=== PATIENT | male | born 1950 | race Caucasian/White ===

== ENCOUNTER 2023-08-13 10:02 | Observation (INO) | payer OTHER, MEDICAID ==
[~2023-08-13] VITALS: Ht 170.2 cm; Wt 71.2 kg
[2023-08-13 10:03] VITALS: BP_SYST 154; PULSE 107; RESP 18; TEMP 97.6; O2SAT 97
[2023-08-13 10:35] LABS: BASOPHILS % (AUTO) 0.5 % (0.0-2.0); EOSINOPHILS # (AUTO) 0.3 K/uL (0.0-0.4); EOSINOPHILS % (AUTO) 3.1 % (0.0-4.0); HEMATOCRIT 39.6 % (36-54); HEMOGLOBIN 13.4 g/dL (14.0-18.0); LYMPHOCYTES # (AUTO) 1.2 K/uL (1.0-5.5); MEAN CORPUSCULAR HEMOGLOBIN 32 pg (27-31); MEAN CORPUSCULAR HGB CONC 34 % (32-36); MEAN CORPUSCULAR VOLUME 94 fL (79.0-98.0); MONOCYTES # (AUTO) 0.8 K/uL (0.0-1.0); MONOCYTES % (AUTO) 9.1 % (1.7-9.3); NEUTROPHILS % (AUTO) 72.3 % (40.0-70.0); PLATELET COUNT (AUTO) 323 K/uL (130-430); RED BLOOD CELL COUNT(AUTO) 4.22 MIL/uL (4.2-6.2); WHITE BLOOD COUNT (AUTO) 8.3 K/uL (4.8-10.8)
[2023-08-13 10:45] LABS: ANION GAP 7 (5-15); CALCIUM 9.8 mg/dL (8.4-11.0); CARBON DIOXIDE 29 mmol/L (23-29); CHLORIDE 103 mmol/L (98-107); CREATININE 1.45 mg/dL (0.55-1.30); GLUCOSE 96 mg/dL (74-106); POTASSIUM 4.1 mmol/L (3.5-5.1); SODIUM SERUM 139 mmol/L (136-145); UREA NITROGEN, BLOOD 29 mg/dL (8-21)
[2023-08-13 11:08] LABS: BILIRUBIN,URINE NEGATIVE (NEGATIVE); BLOOD, URINE 3+ (NEGATIVE); CLARITY/URINE CLOUDY (CLEAR); COLOR,URINE RED (YELLOW); GLUCOSE,URINE NEGATIVE (NEGATIVE); KETONES,URINE TRACE (NEGATIVE); LEUKOCYTE ESTERASE ,URINE 1+ (NEGATIVE); NITRITE, URINE POSITIVE (NEGATIVE); PROTEIN URINE 3+ (NEGATIVE)
[2023-08-13 11:24] LABS: BACTERIA,URINE MANY /HPF (None Seen); RBC,URINE >100 /HPF (0-3); WBC,URINE 0-3 /HPF (0-3)
[2023-08-13] MEDS: fentaNYL CITRATE/PF 100 MCG/2 ML AMP IVP ONE (13:06)
[2023-08-13] MEDS: NACL 0.9% 1,000 ML IV ONE ×2 (13:07→14:48)
[2023-08-13] MEDS ORDERED: ACETAMINOPHEN 325 MG TABLET PO PRN (13:30)
[2023-08-13] MEDS ORDERED: BUPR75TA8 PO (13:41)
[2023-08-13] MEDS ORDERED: ABIR250T2 PO (13:41)
[2023-08-13] MEDS ORDERED: IPRA21SP NAS (13:41)
[2023-08-13] MEDS ORDERED: BACL10TA PO (13:41)
[2023-08-13] MEDS ORDERED: AMLO10TA88 PO (13:41)
[2023-08-13] MEDS ORDERED: CETI-354 PO (13:41)
[2023-08-13] MEDS ORDERED: PRED5TAB PO (13:41)
[2023-08-13] MEDS ORDERED: PARO-41 PO (13:41)
[2023-08-13] MEDS ORDERED: ALBMDI INH (13:43)
[2023-08-13] MEDS ORDERED: IRBE300T40 PO (13:43)
[2023-08-13] MEDS ORDERED: MORPHINE 2 MG/ML INJ. SYRINGE IVP PRN (14:00)
[2023-08-13] MEDS ORDERED: cefTRIAXone 1 GM IVPB PREMIX 50 ML IV SCH (14:00)
[2023-08-13] MEDS: HYDROcodone/ACETAMIN 10-325 MG TAB PO PRN (14:48)
[2023-08-13 14:49] VITALS: BP_SYST 136; PULSE 105; RESP 17; TEMP 98; O2SAT 95
[2023-08-13 15:31] VITALS: BP_SYST 136; PULSE 105; RESP 18; TEMP 98; O2SAT 95
[2023-08-13] MEDS: cefTRIAXone 1 GM IVPB PREMIX 50 ML IV ONE (15:50)
[2023-08-13 16:52] VITALS: BP_SYST 136; PULSE 105; RESP 17; TEMP 98
[2023-08-13] MEDS: MORPHINE 2 MG/ML INJ. SYRINGE IVP PRN (17:00)
[2023-08-13 19:00] VITALS: BP_SYST 132; PULSE 86; RESP 18; TEMP 97.7; O2SAT 99
[2023-08-13 20:00] VITALS: BP_SYST 132; PULSE 78; RESP 18; TEMP 97.7; O2SAT 99
[2023-08-14] VITALS (7 sets, daily range): BP systolic 107–141; PULSE 79–106; RESP 15–18; TEMP 96.8–98.8; O2SAT 93–99
[2023-08-14 05:41] LABS: BASOPHILS % (AUTO) 0.5 % (0.0-2.0); EOSINOPHILS # (AUTO) 0.2 K/uL (0.0-0.4); EOSINOPHILS % (AUTO) 2.1 % (0.0-4.0); HEMATOCRIT 35.2 % (36-54); HEMOGLOBIN 11.9 g/dL (14.0-18.0); LYMPHOCYTES # (AUTO) 1.4 K/uL (1.0-5.5); LYMPHOCYTES % (AUTO) 16.1 % (20.5-51.5); MEAN CORPUSCULAR HEMOGLOBIN 32 pg (27-31); MEAN CORPUSCULAR HGB CONC 34 % (32-36); MEAN CORPUSCULAR VOLUME 95 fL (79.0-98.0); MONOCYTES # (AUTO) 0.9 K/uL (0.0-1.0); MONOCYTES % (AUTO) 10.1 % (1.7-9.3); NEUTROPHILS % (AUTO) 71.2 % (40.0-70.0); PLATELET COUNT (AUTO) 314 K/uL (130-430); RED BLOOD CELL COUNT(AUTO) 3.72 MIL/uL (4.2-6.2); RED CELL DISTRIBUTION WIDTH 13.1 % (9.0-15.0); WHITE BLOOD COUNT (AUTO) 8.5 K/uL (4.8-10.8)
[2023-08-14 05:59] LABS: ALANINE AMINOTRANSFERASE 11 U/L (12-78); ANION GAP 11 (5-15); ASPARTATE AMINOTRANSFERASE 12 U/L (10-37); CALCIUM 8.8 mg/dL (8.4-11.0); CARBON DIOXIDE 27 mmol/L (23-29); CHLORIDE 107 mmol/L (98-107); CREATININE 1.19 mg/dL (0.55-1.30); GLUCOSE 89 mg/dL (74-106); POTASSIUM 4.1 mmol/L (3.5-5.1); SODIUM SERUM 145 mmol/L (136-145); TOTAL BILIRUBIN 0.6 mg/dL (0.0-1.0); TOTAL PROTEIN, SERUM 6.6 g/dL (6.4-8.3); UREA NITROGEN, BLOOD 22 mg/dL (8-21)
[2023-08-14] MEDS ORDERED: cefTRIAXone 1 GM IVPB PREMIX 50 ML IV SCH ×3 (09:00)
[2023-08-14] MEDS: CEFTRIAXONE SOD 1 GM/ D5W 50 ML IV SCH (09:04)
[2023-08-14] MEDS ORDERED: ABIRATERONE ACETATE 250 MG PO SCH (13:30)
[2023-08-14] MEDS ORDERED: IRBESARTAN 150 MG TABLET (AVAPRO) PO SCH (13:30)
[2023-08-14] MEDS: BACLOFEN 10 MG TABLET PO ONE (14:28)
[2023-08-14] MEDS: buPROPion HCL 75 MG TABLET PO ONE (14:28)
[2023-08-14] MEDS: PARoxetine HCL 20 MG TABLET PO ONE (14:28)
[2023-08-14] MEDS: amLODIPine BESYLATE 10 MG TABLET PO ONE (14:29)
[2023-08-14] MEDS: LOSARTAN POTASSIUM 50 MG TABLET (COZAAR) PO ONE (14:31)
[2023-08-14] MEDS: ABIRATERONE ACETATE 250 MG PO SCH (16:33)
[2023-08-14] MEDS: ABIRATERONE ACETATE 250 MG PO ONE (16:34)
[2023-08-15 00:33] VITALS: BP_SYST 116; PULSE 93; RESP 16; TEMP 97.5; O2SAT 95
[2023-08-15 07:10] LABS: BASOPHILS % (AUTO) 0.5 % (0.0-2.0); EOSINOPHILS # (AUTO) 0.3 K/uL (0.0-0.4); EOSINOPHILS % (AUTO) 4.6 % (0.0-4.0); HEMATOCRIT 33.6 % (36-54); HEMOGLOBIN 11.4 g/dL (14.0-18.0); LYMPHOCYTES # (AUTO) 1.4 K/uL (1.0-5.5); LYMPHOCYTES % (AUTO) 18.9 % (20.5-51.5); MEAN CORPUSCULAR HEMOGLOBIN 32 pg (27-31); MEAN CORPUSCULAR HGB CONC 34 % (32-36); MEAN CORPUSCULAR VOLUME 94 fL (79.0-98.0); MONOCYTES # (AUTO) 0.9 K/uL (0.0-1.0); MONOCYTES % (AUTO) 11.4 % (1.7-9.3); NEUTROPHILS # (AUTO) 4.9 K/uL (1.8-7.7); NEUTROPHILS % (AUTO) 64.6 % (40.0-70.0); PLATELET COUNT (AUTO) 299 K/uL (130-430); RED BLOOD CELL COUNT(AUTO) 3.58 MIL/uL (4.2-6.2); RED CELL DISTRIBUTION WIDTH 13.2 % (9.0-15.0); WHITE BLOOD COUNT (AUTO) 7.6 K/uL (4.8-10.8)
[2023-08-15 07:26] LABS: ALANINE AMINOTRANSFERASE 11 U/L (12-78); ALBUMIN 2.8 g/dL (3.4-4.8); ANION GAP 9 (5-15); ASPARTATE AMINOTRANSFERASE 12 U/L (10-37); CALCIUM 8.6 mg/dL (8.4-11.0); CARBON DIOXIDE 26 mmol/L (23-29); CHLORIDE 105 mmol/L (98-107); CREATININE 1.07 mg/dL (0.55-1.30); GLUCOSE 86 mg/dL (74-106); POTASSIUM 3.2 mmol/L (3.5-5.1); SODIUM SERUM 140 mmol/L (136-145); TOTAL BILIRUBIN 0.8 mg/dL (0.0-1.0); TOTAL PROTEIN, SERUM 6.2 g/dL (6.4-8.3); UREA NITROGEN, BLOOD 17 mg/dL (8-21)
[2023-08-15 08:01] VITALS: BP_SYST 143; PULSE 104; RESP 20; TEMP 98.1; O2SAT 98; O2SAT 99
[2023-08-15] MEDS: ONDANSETRON HCL 4 MG/2 ML VIAL IVP PRN (08:21)
[2023-08-15 09:07] VITALS: BP_SYST 143; PULSE 98; RESP 20; TEMP 98.1; O2SAT 98
[2023-08-15] MEDS: BACLOFEN 10 MG TABLET PO SCH (09:26)
[2023-08-15] MEDS: buPROPion HCL 75 MG TABLET PO SCH (09:26)
[2023-08-15] MEDS: PARoxetine HCL 20 MG TABLET PO SCH (09:27)
[2023-08-15] MEDS: LOSARTAN POTASSIUM 50 MG TABLET (COZAAR) PO SCH (09:27)
[2023-08-15] MEDS: HYDROcodone/ACETAMIN 5-325 MG TAB (NORCO/ VICODIN) PO PRN (09:28)
[2023-08-15] MEDS: amLODIPine BESYLATE 10 MG TABLET PO SCH (09:29)
== END 2023-08-15 11:00 | disposition home or self-care (01) ==
LOC: SED 10:02 → SMU 13:25
PROVIDERS: ADMIT Family Medicine; ATTEND Family Medicine
DX: C61 Malignant neoplasm of prostate (principal); C79.51 Secondary malignant neoplasm of bone; N39.0 Urinary tract infection, site not specified; R91.1 Solitary pulmonary nodule; I10 Essential (primary) hypertension; N17.9 Acute kidney failure, unspecified; R31.0 Gross hematuria; D64.9 Anemia, unspecified; Z79.899 Other long term (current) drug therapy
CPT/HCPCS: 96361; 96365; 96375 ×2; 96376 ×3; 80048; 81000; 81015; 81001; 85025 ×3; 87086; 36415 ×3; 99285; 96366 ×2; 80053 ×2; 74176; 97112; 97530; 97116; 97162; J0696 ×4; J3010; J2270 ×3; G0378 ×3; J7060 ×2; J2405